=== PATIENT | female | born 1980 ===

== ENCOUNTER 2016-07-25 12:54 | Emergency (ER) | payer SELFPAY ==
[2016-07-25 13:39] VITALS: BMI 29.0
[2016-07-25] MEDS ORDERED: Lactated Ringer's 1,000 ML IV ONE (15:35)
--- NOTE | 2016-07-25 15:47 | US ---
Ultrasound biophysical profile Indication: Rule out abruption, 3rd trimester bleeding Technique: Grayscale, color flow, and M-mode sonographic images of the single live intrauterine were obtained. Comparison: Limited OB ultrasound performed 03/17/16 Findings: There is a single live intrauterine gestation. The fetus is in cephalic position. The placenta is anterior. There is no evidence of previa. There is a normal amount of amniotic fluid. The JULIET measures 15.8 cm. M-mode imaging demonstrates a heart rate to be 136.8 beats per min. movements 2/2 breathing 2/2 tone 2/2 Amniotic fluid 2/2 Total score impression: 10/25 Impression: Biophysical profile of 8 out of 8. Single live intrauterine in cephalic position with a heart rate of 136.8 beats per min.
[2016-07-25] MEDS: Lactated Ringer's 1,000 ML IV SCH (16:30)
[2016-07-25 18:20] LABS: HEMATOCRIT 30.9 % (34.0-47.0); MEAN CELL VOLUME 78.3 fl (81.0-99.0); MEAN CORPUSCULAR HEMOGLOBIN 24.7 pg (27.0-31.0); MEAN CORPUSCULAR HGB CONC 31.6 g/dL (33.0-37.0); RED CELL DISTRIBUTION WIDTH 25.8 % (11.5-14.5); WHITE BLOOD COUNT 10.9 K/uL (4.8-10.8)
[2016-07-25 22:51] LABS: ALB/GLOB RATIO 1.2 (1.0-2.1); ALKALINE PHOSPHATASE 166 U/L (38-126); ALT/SGPT 32 U/L (9-52); AST/SGOT 32 U/L (14-36); BILIRUBIN,TOTAL 0.2 mg/dl (0.2-1.3); BLOOD UREA NITROGEN 6 mg/dl (7-17); CALCIUM 8.9 mg/dL (8.4-10.2); CARBON DIOXIDE 22 mmol/L (22-30); CHLORIDE 105 mmol/L (98-107); GFR AFRICAN-AMERICAN > 60; GLUCOSE,RANDOM 58 mg/dL (65-105); POTASSIUM 3.7 MMOL/L (3.6-5.0); SODIUM 138 mmol/l (132-148); TOTAL PROTEIN 6.6 G/DL (6.3-8.2)
[2016-07-26 00:49] LABS: RBC URINE < 1 /hpf (0-3); URINE BACTERIA RARE (<OCC); URINE BILIRUBIN NEGATIVE (NEGATIVE); URINE BLOOD SMALL (NEGATIVE); URINE COLOR YELLOW (YELLOW); URINE GLUCOSE (UA) NEG (Normal); URINE KETONE NEGATIVE (NEGATIVE); URINE LEUKOCYTE ESTERASE NEG Leu/uL (Negative); URINE PROTEIN NEGATIVE (NEGATIVE); URINE UROBILINOGEN 0.2-1.0 mg/dL (0.2-1.0); WBC URINE < 1 /hpf (0-5)
[2016-07-26] MEDS: Lactated Ringer's 1,000 ML IV SCH (01:50)
--- NOTE | 2016-07-26 08:03 | OBHP ---
Datetime: 07/25/2016 13:45 IP Admit Plan: Observation/Evaluation Admit Comment, IP Provider: 36yi edc 08/16 by 18wk us presents w/ c/o bloody fluid @ 12:00. S he denies ctxs, coitus, in past 2days, abd pain, or decreased fm. 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 incompete ab treated with d_c and blood transfusion; complete ab pshx: d_c medic: pnv; feso4 tid nkda shx: denies tobacco, cocaine, etoh I: 3rd Trim Bleeding AMA Anemia h/o through out preg p: fms ob us p: US for den, bpp, efw and assessment of plac. Pelvic Type - PN: Adequate Extremities - PN: Normal Abdomen - PN: Normal Lungs - PN: Normal Heart - PN: Normal Neurologic - PN: Normal HEENT - PN: Normal General - PN: Normal FHR - Baseline A Provider: 130 Contraction Comments Provider: no Comments, ACOG Physical Exam: B+; rubella indeterm; gbs neg SSE: + pooled blood in vault, dark red. no active bleeding per cer os ob us: bpp 8/8; ;no previa or evidence of abruption den 15.8 EGA AdmitDate IP: 36.6 Vital Signs Provider: Within Normal Limits IP Chief Complaint: Vaginal bleeding NICHD Variability Prov Fetus A: Moderate 6-25bpm NICHD Accel Fetus A IP Provider: 15X15 FHR Category Provider Fetus A: Category I NICHD Decel Fetus A IP Provider: None Dilatation, Provider: 0 Effacement, Provider: 0 Station, Provider: -4 Genitourinary Exam: Normal
--- NOTE | 2016-07-26 08:12 | OBPN ---
Datetime: 07/26/2016 08:05 Pool Provider: Negative Contraction Comments Provider: no FHR - Baseline A Provider: 130 IP Progress Note Comment: s: pt states bleeding decreased. states scant brown blood. deneis cramps, ctxs, srom, or leakage. +good fm. o: SSE: no active bleeding per cerv os; + brown blood smeared through vaginal vault I: Third Trim Bleeding- no active bleeding Categ 1 w/ no ctxs P: d/c home. f/u in 1-2days in clinic request f/u us with dr. orourke [facility] if bleeding restarts. pelvic rest kick counts. Fe supplem reinforced. Vital Signs Provider: Within Normal Limits NICHD Accel Fetus A IP Provider: 15X15 FHR Category Provider Fetus A: Category I NICHD Variability Prov Fetus A: Minimal - Undetectable to <5bpm Dilatation, Provider: 0 Effacement, Provider: 0 Station, Provider: -4 NICHD Decel Fetus A IP Provider: None
--- NOTE | 2016-07-26 09:36 | US ---
PROCEDURE: Obstetrical ultrasound examination HISTORY: r/o abruption COMPARISON: Not available TECHNIQUE: Transabdominal FINDINGS: The examination demonstrates a single live intrauterine gestation. Fetus in cephalic presentation. . heart rate 149 beats per minute. Normal anterior placenta. No evidence of placenta previa. No evidence of placental abruption.Cervical length none indicated. Normal amniotic fluid volume. JULIET 16.2 cm. biometry indicates average ultrasound age of 36 weeks 4 days. Estimated weight 3007 g. JULIAN by ultrasound is 08/18/2016. Neither right nor left ovary visualized. No adnexal masses are identified. IMPRESSION: Single live intrauterine gestation of approximately 36 weeks 4 days gestational age. Cephalic presentation. No evidence of placenta previa. Normal amniotic fluid volume. No evidence of placental abruption. Preliminary interpretation of this examination was reported by [facility] at 8:20 p.m. on 07/25/2016.. There is concurrence of this report with the preliminary interpretation.
== END 2016-07-25 23:00 | disposition home or self-care (01) ==
LOC: H.EROB2 12:54
DX: O47.03 False labor before 37 completed weeks of gestation, third trimester (principal); Z3A.36 36 weeks gestation of pregnancy; O99.03 Anemia complicating the puerperium; O09.523 Supervision of elderly multigravida, third trimester

== ENCOUNTER 2016-08-10 08:56 | Inpatient (IN) | payer MEDICAID, SELFPAY ==
[2016-08-10 11:03] VITALS: BMI 30.2
[2016-08-10] MEDS ORDERED: Oxytocin 30 units/LR 500ML 30 U/500 ML BAG IV SCH (11:15)
[2016-08-10] MEDS: Lactated Ringer's 1,000 ML IV SCH (11:49)
--- NOTE | 2016-08-10 11:49 | OBADHP ---
Datetime: 08/10/2016 09:54 Admit Comment, IP Provider: 36 yo , ect preg x 1 at 39.1 weeks GA by US with JULIAN: 08/16 pres ents to SPEEDY c/o LOF small amount, noticed in the morning associated with minimal vaginal spotting. Patient denies Ctx, headache, blurry vision, dysuria and reports + FM. care CFH. as per didi ent Last visit 08/08 patient checked cervix closed. LAst Growth Us 08/01 BPP: 10/, EFW: 6lbs 13 Oz. placenta anterior. Patient reports last delivery was home and it was a fast delivery (3 hours) POBhx: x 6. SAb x 1. Ect preg x 1. Severe Anemia during this . Hgb electroph possib le alpha thalasemia, but alpha thalasemia DNA no mutation detected. Hx/o precipitous delivery outside hospital PMhx: none Pshx: 2002 d_c Allergies: NKDA Meds: Iron 1 tab TID, PNV PSurgHx: none PShx: No ETOh, rect drugs, Cig GBS: neg ABO-Rh: B+ Antibody: neg RPR: neg HIV: neg HBsAg: neg Rubella: Equivocal GC/C: neg PPD: posit/ CXR ? needed TDap: placed Assessment/Plan: 36 yo , ect preg x 1 at 39.1 weeks GA. No SROM. Plan: - Observation -continous monitoring -Check in 1 hour Megha Ahmadi PGY1 Case discussed with Dr Price Attending addendum: Patient seen and examined with resident, chart reviewed, agree with resident Dr. Ahmadi's note findi ngs and plan. 36 y/o at 39w1d based on 18wk u/s EDC 08/16/16. Pt reports increased ctx since this morning and passsing mucus plug, some fluid and blood streaked. +fm A/P: grand multiparity at term with hx of precipitous deliveries, admit to L_D, active management of labor, hemorrhage precautions -Fetus: category 1 tracing -AMA: low risk testing, declined amnio -anemia: H/H 9.7/30.9, check CBC now, T_S -+ppd this , check cxr at delivery -rubella equivocal, give vaccine -GBS neg, GCT 95, prior delivery of 9#2 and 9#3 babies w/o complications -anticipate Pat Price MD Pelvic Type - PN: Adequate Extremities - PN: Normal Abdomen - PN: Normal Back - PN: Normal Breast - PN: Normal Lungs - PN: Normal Heart - PN: Normal Thyroid - PN: Normal Neurologic - PN: Normal HEENT - PN: Normal General - PN: Normal FHR - Baseline A Provider: 140 Membranes, Provider: Intact Contraction Comments Provider: irregular Comments, ACOG Physical Exam: Us Bedside: Vertex SSE: Vaginal discharge related with mucus plug. membranes not bulging. nitrazine neg Pool Provider: Negative Nitrazine Provider: Negative Vital Signs Provider: Reviewed; Within Normal Limits IP Chief Complaint: Suspected ruptured membranes NICHD Variability Prov Fetus A: Moderate 6-25bpm NICHD Accel Fetus A IP Provider: 15X15 FHR Category Provider Fetus A: Category I NICHD Decel Fetus A IP Provider: None Dilatation, Provider: 2-3 cm Effacement, Provider: 50 Station, Provider: -3 Genitourinary Exam: Normal DTRs - PN: Normal EGA AdmitDate IP: 39.1 IP Adm Impression: Term, intrauterine IP Admit Plan: Admit to unit; Observation/Evaluation
[2016-08-10] MEDS ORDERED: Oxytocin 30 units/LR 500ML 30 U/500 ML BAG IV ONE (11:53)
[2016-08-10 12:21] LABS: HEMATOCRIT 35.4 % (34.0-47.0); MEAN CELL VOLUME 80.5 fl (81.0-99.0); MEAN CORPUSCULAR HEMOGLOBIN 25.9 pg (27.0-31.0); MEAN CORPUSCULAR HGB CONC 32.2 g/dL (33.0-37.0); RED CELL DISTRIBUTION WIDTH 26.9 % (11.5-14.5); WHITE BLOOD COUNT 10.1 K/uL (4.8-10.8)
[2016-08-10] MEDS ORDERED: Lidocaine 1% Inj (20ml) ONE (13:04)
[2016-08-10] MEDS ORDERED: Succinylcholine 200 mg/10 ml Inj IV ONE (14:21)
[2016-08-10] MEDS ORDERED: Propofol 10 mg/ml Inj (20 ML) ONE (14:21)
[2016-08-10] MEDS ORDERED: Rocuronium 10 mg/ml (5 ml) ONE (14:26)
[2016-08-10] MEDS ORDERED: HYDROmorphone 0.5 mg/0.5 ml ISec IVP PRN (15:36)
--- NOTE | 2016-08-10 15:36 | RAD ---
HISTORY: Staff surgery. COMPARISON: No prior study available comparison FINDINGS: BOWEL: Nonobstructive/nonspecific bowel gas pattern. BONES: Osseous structures intact. OTHER FINDINGS: No obvious radiopaque foreign body seen within the intraperitoneal compartment however note made of radiopaque ribbonlike structure and rounded metallic ring-like structure overlying the right hip/inguinal region. Clinical correlation with physical exam recommended as the structures appear to be outside the intraperitoneal compartment likely overlying the patient however clinical correlation with physical exam recommended. . IMPRESSION: No radiopaque foreign body seen within the intraperitoneal compartment. There is however a radiopaque ribbonlike structure and metallic ring-like structure overlying the right hip/right inguinal region of which appears to be outside of the intraperitoneal compartment likely overlying the patient however clinical correlation with physical exam is recommended.
[2016-08-10] MEDS ORDERED: ceFAZolin 1 GM in Sodium Chloride 0.9% 100 ML IVPB ONE (15:44)
[2016-08-10] MEDS ORDERED: Oxycodone/Acetaminophen 5/325 mg Tab PO PRN ×3 (15:45→20:22)
[2016-08-10] MEDS ORDERED: Simethicone 80 mg Chewtab PO SCH (16:00)
--- NOTE | 2016-08-10 17:20 | OBPN ---
Datetime: 08/10/2016 14:22 IP Progress Impression: Normal progression of labor; Reassuring heart rate IP Procedures: Artificial ROM IP Progress Plan: Deliver- Section Contraction Comments Provider: q3-4 min FHR - Baseline A Provider: 130 IP Progress Note Comment: The patient is doing well pain well controlled reports contractions of mod erate intensity patient reports occasional leakage of fluid and good movement SVE [id number] bulging membranes Assessment and plan intrauterine active labor AROM Clear fluid Upon rupturing the membranes the cord was noted to have prolapsed. Stat section was hamm d the patient was placed in Trendelenburg Dr Price hand was inserted into the vagina gentle upward p ressure was applied to prevent cord compression. The patient was informed of the emergent nature of t he situation consent was obtained we discussed her risks benefits and alternatives to the procedure a nd patient agreed with the plan of care. The patient was taken to the Operating room in an emergent f ashion and the infant was delivered. see op report NICHD Accel Fetus A IP Provider: 15X15 FHR Category Provider Fetus A: Category I NICHD Variability Prov Fetus A: Moderate 6-25bpm Dilatation, Provider: 6-7 Effacement, Provider: 80 Station, Provider: -1 NICHD Decel Fetus A IP Provider: None Datetime: 08/10/2016 13:30 Membranes, Provider: Intact Vital Signs Provider: Reviewed; Within Normal Limits Datetime: 08/10/2016 09:54 Pool Provider: Negative Nitrazine Provider: Negative
--- NOTE | 2016-08-10 17:22 | OBPN ---
Datetime: 08/10/2016 14:22 IP Progress Note Comment: The patient is doing well pain well controlled reports contractions of mod erate intensity patient reports occasional leakage of fluid and good movement SVE 6-780-1 bulging membranes Assessment and plan intrauterine active labor AROM Clear fluid Upon rupturing the membranes the cord was noted to have prolapsed. Stat section was hamm d the patient was placed in Trendelenburg Dr Price hand was inserted into the vagina gentle upward p ressure was applied to prevent cord compression. The patient was informed of the emergent nature of t he situation, The patient was taken to the Operating room in an emergent fashion consent was obtaine d prior to general anesthesia we discussed the r/b/a to section and the patient agreed. The infant was delivered. see op report
--- NOTE | 2016-08-10 21:39 | OP ---
PROCEDURE DATE: 08/10/2016 PREOPERATIVE DIAGNOSES: Intrauterine at 39 weeks, active labor, cord prolapse. POSTOPERATIVE DIAGNOSES: Intrauterine at 39 weeks, active labor, cord prolapse. OPERATION PERFORMED: Stat primary section by Pfannenstiel skin incision. SURGEON: Renu Yost MD COAL CHUTE WORKER: Dr. Ahmadi. ESTIMATED BLOOD LOSS: Approximately 1000 mL. The patient put out approximately 50 mL of clear urine. The patient received approximately 1200 mL of D5LR intraoperatively. OPERATIVE FINDINGS: Baby girl, vertex presentation, Apgars 0 and 4; normal uterus, tubes, and ovaries were identified. COMMENTS: The patient was a 36-year-old female grand multipara who presented to labor and delivery approximately 2-3 cm dilated complaining of uterine contractions at 39 weeks. The patient had given history of previous home delivery secondary to precipitous labor. The decision was made to keep the patient for delivery. The patient progressed to 5-6 cm, bulging membranes were noted, upon rupturing the membranes, cord prolapse was identified immediately. The patient was placed in steep Trendelenburg. Physician, Dr. Price, was available to assist. She kept hand in the vagina to avoid any additional cord compression and the patient was taken to the operating room and a stat procedure was performed. X-ray was performed after the procedure and no instruments were identified postoperatively. PROCEDURE IN DETAIL: After informed consent was obtained, the patient was taken to the operating room where she was prepped and draped in a normal sterile fashion. A Pfannenstiel skin incision was then made with the scalpel and carried down to the underlying layer of fascia. The fascia was nicked in the midline and the fascial incision was then extended laterally with curved Lopez scissors. Superior aspect of the fascial incision was then grasped with Arlin clamps. The rectus muscles were dissected off bluntly and with sharp curved Mayos. Attention was then turned to the inferior aspect of the fascial incision which in similar fashion was dissected off bluntly and with the curved Lopez scissors. Rectus muscles were then in the midline. The peritoneum was entered bluntly. The lower blade was inserted into the abdomen and the vesicouterine peritoneum was identified and entered sharply with the Metzenbaum scissors. The bladder flap was created digitally. Lower transverse incision was made and the infant was then delivered atraumatically. The was handed off to waiting pediatricians and audiology technician. The placenta was then removed manually. The uterus was exteriorized and cleared of all clots and debris. The uterine incision was repaired with 0 Vicryl in a running lock fashion, second layer of the same suture was used to obtain excellent hemostasis. The abdomen was then copiously irrigated. Irrigant was removed with a suction device. The uterus was returned to the abdomen. Hemostasis was noted. The peritoneum was then closed with 2-0 Vicryl in a running fashion. The muscles reapproximated with 0 Vicryl in an interrupted fashion. The fascia was closed with 0 Vicryl in a running fashion and the skin was closed with 3-0 on a Zen needle Due to the urgent nature of the situation we were unable to get a preoperative instrument count, an xray was obtained postoperatively and the film was reviewed by radiology. Dr. Ahmadi was the veterinarian assistant in the procedure. He was helpful in creating exposure, obtaining hemostasis, retraction and delivery of the . The procedure would not have been possible without assistance. Dr. Price, was also instrumental in the care of the patient. She maintained her hand in the vagina until the baby was safely delivered to avoid any cord compression. Renu Yost MD cc: [id number] TT: 08/10/2016 21:38:12 kika ENCINAS
[2016-08-10] MEDS: Simethicone 80 mg Chewtab PO SCH (21:47)
[2016-08-11] MEDS: Lactated Ringer's 1,000 ML IV SCH ×3 (03:20→22:20)
[2016-08-11 07:12] LABS: HEMATOCRIT 19.3 % (34.0-47.0); MEAN CELL VOLUME 81.9 fl (81.0-99.0); MEAN CORPUSCULAR HEMOGLOBIN 26.6 pg (27.0-31.0); MEAN CORPUSCULAR HGB CONC 32.5 g/dL (33.0-37.0); RED CELL DISTRIBUTION WIDTH 26.8 % (11.5-14.5); WHITE BLOOD COUNT 9.4 K/uL (4.8-10.8)
[2016-08-11] MEDS: Simethicone 80 mg Chewtab PO SCH ×3 (09:00→21:47)
--- NOTE | 2016-08-11 10:59 | RAD ---
HISTORY: + ppd COMPARISON: No prior. FINDINGS: LUNGS: No active pulmonary disease. PLEURA: No significant pleural effusion identified, no pneumothorax apparent. CARDIOVASCULAR: Normal. OSSEOUS STRUCTURES: No significant abnormalities. VISUALIZED UPPER ABDOMEN: Normal. OTHER FINDINGS: None. IMPRESSION: No active disease.
[2016-08-11] MEDS: Oxycodone/Acetaminophen 5/325 mg Tab PO PRN ×2 (14:26→20:09)
[2016-08-12] MEDS: Simethicone 80 mg Chewtab PO SCH ×3 (04:29→18:23)
[2016-08-12] MEDS: Lactated Ringer's 1,000 ML IV SCH (05:44)
[2016-08-12 06:55] LABS: BASO % 0.4 % (0.0-2.0); EOS # 0.9 K/uL (0.0-0.7); EOS % 9.4 % (0.0-4.0); LYMPH # 2.4 K/uL (1.0-4.3); LYMPH % 24.3 % (20.0-40.0); MEAN CELL VOLUME 84.2 fl (81.0-99.0); MEAN CORPUSCULAR HEMOGLOBIN 27.9 pg (27.0-31.0); MEAN CORPUSCULAR HGB CONC 33.1 g/dL (33.0-37.0); MEAN PLATELET VOLUME 8.8 fl (7.2-11.7); MONO # 0.3 K/uL (0.0-0.8); MONO % 3.5 % (0.0-10.0); NEUT # 6.1 K/uL (1.8-7.0); NEUT % 62.4 % (50.0-75.0); RED CELL DISTRIBUTION WIDTH 23.8 % (11.5-14.5); WHITE BLOOD COUNT 9.7 K/uL (4.8-10.8)
--- NOTE | 2016-08-12 07:30 | OBPPN ---
Datetime: 08/12/2016 06:19 PP Pain Prov: Within normal limits PP Nausea Prov: Denies PP Flatus Prov: No PP BM Prov: No PP Flatus Prov comment: + BS PP Heart Prov: Normal PP Lungs Prov: Normal PP Abdomen/Uterus Prov: Normal PP Extremities Prov: Normal PP C/S Incision Prov: Normal PP Progress Prov: Not Applicable PP Comments Phys Exam Prov: Abd: Soft, tender Bowl sounds + Incision : C/D/I no erythema or discharge noted PP Impression Prov: Normal progression PP Plan Prov: Continue present management PP Progress Note Prov: 36 YO seen and examined at bedside. Patient had uneventful overnight and has been feeling well during the day. Patient reports mild moderate pain controlled w/ oral sienna n medication, SKIP LOAD DRIVER pump was d/c overnight. Tolerating PO intake. Lochia is less than menses in volum e. Voiding freely w/ no blood noted w/ hernandez. Hernandez will be discontinued today. Reports passing gas but has not had a bowl movement. Pain controlled with medication. Denies fevers, chills, n/v/d, CP /SOB, lightheadedness and calf pain. Called overnight resident at [facility] to checkup on her child, mikal campa is doing well breathing on room air. Still has decreased PO intake, expected d/c for baby is on Mo nday. Assessment:36 YO s/p emergency C section due to cord prolapse on 08/10/16 @ 14:34 maciel ating pain w/ medication, tolerating PO intake, adequate urine output, doing well on POD#2. - CXR: Negative - Hb: 6.3. 2 Unit transfused Plan: - Mild pain PRN: Ibuprofen 600 mg 1 tab Q6h PO - Mod pain PRN: Percocet 5/325 mg 1 tab Q6 PO - CXR ordered - MMR on discharge - F/U w/ CBC s/p 2 units transfusion - d/c Hernandez today Gennaro Fenton M.D. OB Hospitalist Addendum: Pt seen and examined by me. Agree w/ above. POD 2 s/p Primary stat c/s, doing well, s/p 2 units PRBCs, breast pumping. Incision: intact w/ steri strips. (ES) IP PP Procedures: None Vital Signs Provider PP: Reviewed; Within Normal Limits Datetime: 08/11/2016 05:43 PP Lochia Prov: Normal PP Impression Other Prov: Pt encouraged to ask for pain med and use the SKIP LOAD DRIVER pump when need
[2016-08-12] MEDS: Oxycodone/Acetaminophen 5/325 mg Tab PO PRN (09:38)
[2016-08-13] MEDS: Simethicone 80 mg Chewtab PO SCH ×3 (00:21→14:34)
[2016-08-13] MEDS ORDERED: Measles, Mumps, and Rubella 0.5 ML VIAL SC ONE (08:00)
--- NOTE | 2016-08-13 17:24 | OBHP ---
Datetime: 08/10/2016 14:22 FHR - Baseline A Provider: 130 Contraction Comments Provider: q3-4 min NICHD Variability Prov Fetus A: Moderate 6-25bpm NICHD Accel Fetus A IP Provider: 15X15 FHR Category Provider Fetus A: Category I NICHD Decel Fetus A IP Provider: None Dilatation, Provider: 6-7 Effacement, Provider: 80 Station, Provider: -1 Datetime: 08/10/2016 13:30 IP Adm Impression: Term, intrauterine Membranes, Provider: Intact EGA AdmitDate IP: 39.1 Vital Signs Provider: Reviewed; Within Normal Limits IP Chief Complaint: Uterine contractions; Suspected ruptured membranes Datetime: 08/10/2016 09:54 IP Admit Plan: Admit to unit; Observation/Evaluation (Annotations: Data stored by CPN on behalf of user) Pelvic Type - PN: Adequate Extremities - PN: Normal Abdomen - PN: Normal Back - PN: Normal Breast - PN: Normal Lungs - PN: Normal Heart - PN: Normal Thyroid - PN: Normal Neurologic - PN: Normal HEENT - PN: Normal General - PN: Normal Comments, ACOG Physical Exam: Us Bedside: Vertex SSE: Vaginal discharge related with mucus plug. membranes not bulging. nitrazine neg Pool Provider: Negative Nitrazine Provider: Negative Genitourinary Exam: Normal DTRs - PN: Normal Datetime: 07/25/2016 15:02 Admit Comment, IP Provider: 36yi edc 08/16 by 18wk us presents w/ c/o bloody fluid @ 12:00. S he denies ctxs, coitus, in past 2days, abd pain, or decreased fm. 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 incompete ab treated with d_c and blood transfusion; complete ab pshx: d_c medic: pnv; feso4 tid nkda shx: denies tobacco, cocaine, etoh I: 3rd Trim Bleeding- no evidence of abruption AMA Anemia h/o through out preg p: admit for 23hr admission.
--- NOTE | 2016-08-13 17:27 | OBDCSUM ---
Datetime: 08/13/2016 06:43 Discharged to, Provider: Home Follow up at, Provider: [facility] Disch Instr Activity: Normal activity Disch Instr Diet: Regular Discharge Instructions, Provider: Routine instructions given Discharge Diagnosis, Provider: Term Delivered Discharge Time: 08/13/2016 08:00 Follow up in weeks, Provider: 1 week for wound check Disch Referrals: None Disch Activity Restrictions: No exercising; No lifting; No sexual activity; Nothing in vagina - Inte rcourse, tampons, douche Discharge Comment, Provider: 36 YO s/p emergency C section due to cord prolapse on 7 @ 14:34 Delivered baby girl on 08/10/16 @ 14:34 AM , : 0,4, which was transferred to [facility]. Child is doing well and has been extubated and breathing on room air. Expected to be d/c on monday. Patient doing well, stable for discharge. Prescription given for pain. Encourage - PNV 1 tab PO once daily - Ibuprofen 600 mg 1 tab PO Q6 PRN mild pain - Percocet 5/325mg Q6 PRN moderate pain - Ferrous Sulfate 325 mg BID Ambulate w/ caution, nothing in vagina, no heavy lifting, if excessive bleeding or fever without relief from Tylenol go to ED - Advised to F/U with in 1 week for wound check and 2-3 days for infant with tooling manager or PCP. Gennaro Fenton M.D. Transfer Station Attendant PGY1 Contraception after Delivery: Undecided Datetime: 07/26/2016 08:39 Discharge Instructions, Provider: Routine instructions given
--- NOTE | 2016-08-13 17:27 | OBPPN ---
Datetime: 08/13/2016 06:40 PP Pain Prov: Within normal limits PP Nausea Prov: Denies PP Flatus Prov: Yes PP BM Prov: No PP Heart Prov: Normal PP Lungs Prov: Normal PP Abdomen/Uterus Prov: Normal PP Lochia Prov: Normal PP CVA Tenderness Prov: Not Done PP Extremities Prov: Normal PP C/S Incision Prov: Normal PP Progress Prov: Not Applicable PP Comments Phys Exam Prov: Fundus firm below umbilicus Incision site: C/D/I not erythema, swelling or pus noted PP Impression Prov: Normal progression PP Plan Prov: Continue present management PP Progress Note Prov: 36 YO seen and examined at bedside. Patient had uneventful overnight and has been feeling well during the day. Patient reports mild moderate pain controlled w/ oral sienna n medication. Tolerating PO intake. Lochia is less than menses in volume. Voiding freely. OOB ambu lating with no problems. Reports passing gas but has not had a bowl movement. Pain controlled with medication. Denies fevers, chills, n/v/d, CP/SOB, lightheadedness and calf pain. Assessment:36 YO s/p emergency C section due to cord prolapse on 08/10/16 @ 14:34 maciel ating pain w/ medication, tolerating PO intake, adequate urine output, doing well on POD#3 - CXR: Negative - HB s/p 2 U of trasfusion: 8.09/12 Plan: - Stable for discharge today - Mild pain PRN: Ibuprofen 600 mg 1 tab Q6h PO - Mod pain PRN: Percocet 5/325 mg 1 tab Q6 PO - Ferrous Sulfate 325 mg BID - MMR on discharge Gennaro Fenton M.D. OB ADDENDUM: pt seen _ exmined by me. agree with above assessment and plan. IP PP Procedures: None Vital Signs Provider PP: Reviewed; Within Normal Limits
== END 2016-08-13 15:00 | disposition home or self-care (01) | DRG 775 ==
LOC: H.EROB2 08:56 → H.EROB 09:00 → H.L&D 11:03 → H.EROB2 11:10 → H.OB/GYN 20:02
PROVIDERS: ADMIT Obstetrics & Gynecology Gynecology; ATTEND Obstetrics & Gynecology Gynecology
PROC: 10E0XZZ Delivery of Products of Conception, External Approach (ICD-10-PCS; principal; 2016-08-10)
PROC: 4A1HXCZ Monitoring of Products of Conception, Cardiac Rate, External Approach (ICD-10-PCS; 2016-08-10)
DX: O69.0XX0 Labor and delivery complicated by prolapse of cord, not applicable or unspecified (principal); D64.9 Anemia, unspecified; Z37.0 Single live birth; O99.02 Anemia complicating childbirth; Z3A.39 39 weeks gestation of pregnancy; O09.523 Supervision of elderly multigravida, third trimester

== ENCOUNTER 2017-02-19 22:53 | Emergency (ER) | payer MEDICAID, SELFPAY ==
[2017-02-19 22:53] VITALS: BMI 30.2
[2017-02-19 23:01] VITALS: BP 116/76; PULSE 71; RESP 16; TEMP 98.9; O2SAT 100
[2017-02-19] MEDS ORDERED: Lactated Ringer's 1,000 ML IV STA (23:48)
[2017-02-20 00:06] LABS: BASO # 0.1 K/uL (0.0-0.2); BASO % 0.8 % (0.0-2.0); EOS % 10.1 % (0.0-4.0); HEMATOCRIT 31.3 % (34.0-47.0); LYMPH % 28.5 % (20.0-40.0); MEAN CELL VOLUME 86.4 fl (81.0-99.0); MEAN CORPUSCULAR HEMOGLOBIN 29.7 pg (27.0-31.0); MEAN CORPUSCULAR HGB CONC 34.4 g/dL (33.0-37.0); MEAN PLATELET VOLUME 8.8 fl (7.2-11.7); MONO # 0.5 K/uL (0.0-0.8); MONO % 4.8 % (0.0-10.0); NEUT # 5.8 K/uL (1.8-7.0); NEUT % 55.8 % (50.0-75.0); NRBC % 0.1 % (0.0-0.0); RED CELL DISTRIBUTION WIDTH 12.9 % (11.5-14.5); WHITE BLOOD COUNT 10.4 K/uL (4.8-10.8)
--- NOTE | 2017-02-20 00:06 | ED PDOC ---
HPI: Abdomen Time Seen by Provider: 02/19/17 23:29 Chief Complaint (Nursing): Abdominal Pain Chief Complaint (Provider): abdominal pain History Per: Patient History/Exam Limitations: no limitations Onset/Duration Of Symptoms: Days (2 weeks), Gradual, Persistent Associated Symptoms: Chills, Nausea, Vomiting, Loss Of Appetite, Urinary Symptoms (frequency) Exacerbating Factors: None Alleviating Factors: None Additional Complaint(s): Similar to previous episodes Has h/o gallstones, gastritis. LMP 10-28 Episodes of vomiting yesterday PMD [facility] [place] Past Medical History Reviewed: Historical Data, Nursing Documentation, Vital Signs Vital Signs: Last Vital Signs Temp 98.9 F 02/19/17 22:58 Pulse 71 02/19/17 22:58 Resp 16 02/19/17 22:58 BP 116/76 02/19/17 22:58 Pulse Ox 100 02/20/17 02:16 - Medical History PMH: Anemia, Gastritis, Gall Bladder Disease - Surgical History Surgical History: - Family History Family History: States: Diabetes, Hypertension - Social History Current smoker - smoking cessation education provided: No Alcohol: None - Immunization History Hx Tetanus Toxoid Vaccination: No Hx Influenza Vaccination: No Hx Pneumococcal Vaccination: No - Home Medications Home Medications: Ambulatory Orders Medication Instructions Recorded Vit No.126/Iron/Folic 1 tab PO DAILY 07/25/16 [Classic Tablet] Ferrous Sulfate [Feosol] 325 mg PO BID #60 tab 08/13/16 Ibuprofen [Motrin] 600 mg PO Q6 PRN #30 tab 08/13/16 Sennosides [Senokotxtra] 17.2 mg PO HS PRN #20 tablet 08/13/16 oxyCODONE/Acetaminophen [Percocet 1 ea PO Q6 PRN #20 tab 08/13/16 5/325 mg Tab] Dicyclomine [Bentyl] 20 mg PO Q12 PRN #20 tab 02/20/17 Doxylamine/Pyridoxine HCl (B6) 1 - 2 each PO HS #16 tablet. 02/20/17 [Gray De Luna 10-10 mg Tablet] - Allergies Allergies/Adverse Reactions: Allergies Allergy/AdvReac Type Severity Reaction Status Date / Time No Known Allergies Allergy Verified 02/19/17 22:58 Review of Systems ROS Statement: Except As Marked, All Systems Reviewed And Found Negative (and as per HPI) Constitutional: Positive for: Chills, Weakness, Malaise Gastrointestinal: Positive for: Nausea, Vomiting, Abdominal Pain. Negative for : Diarrhea, Constipation, Melena Genitourinary Female: Positive for: Frequency. Negative for: Dysuria, Hematuria , Vaginal Discharge, Vaginal Bleeding Physical Exam - Reviewed Nursing Documentation Reviewed: Yes Vital Signs Reviewed: Yes - Physical Exam Appears: Positive for: Non-toxic, In Acute Distress Head Exam: Positive for: ATRAUMATIC, NORMOCEPHALIC Skin: Positive for: Warm, Dry Eye Exam: Positive for: EOMI, PERRL ENT: Negative for: Pharyngeal Erythema, Tonsillar Exudate Neck: Positive for: Painless ROM, Supple Cardiovascular/Chest: Positive for: Regular Rate, Rhythm. Negative for: Tachycardia Respiratory: Positive for: Normal Breath Sounds. Negative for: Wheezing Gastrointestinal/Abdominal: Positive for: Soft, Tenderness. Negative for: Mass , Distended, Guarding, Rebound Back: Positive for: Normal Inspection. Negative for: Decreased ROM Extremity: Positive for: Normal ROM. Negative for: Deformity - Laboratory Results Result Diagrams: 02/20/17 00:02 02/20/17 00:02 - ECG O2 Sat by Pulse Oximetry: 100 Disposition - Clinical Impression Clinical Impression: Cholelithiasis, Subchorionic bleed - Disposition Disposition: Transfer of Care Disposition Time: 00:00 Condition: STABLE Prescriptions: Dicyclomine [Bentyl] 20 mg PO Q12 PRN #20 tab PRN Reason: abdominal pain Doxylamine/Pyridoxine HCl (B6) [Gray De Luna 10-10 mg Tablet] 1 - 2 each PO HS # 16 tablet. Print Language: MONGOLIAN Patient Signed Over To: Lalo Lopez Handoff Comments: P'ing ER workup reassessment and final ER disposition
[2017-02-20 00:18] LABS: POTASSIUM 3.1 MMOL/L (3.6-5.0)
--- NOTE | 2017-02-20 00:28 | ED PDOC ---
- Laboratory Results Result Diagrams: 02/20/17 00:02 02/20/17 00:02 - ECG O2 Sat by Pulse Oximetry: 100 Medical Decision Making Medical Decision Makin Patient signed out to me from Dr. Grant pending US and re-evaluation. 0149 US ABD FINDINGS There is a negative sonographic Melvin's sign per ct scan technologist. Gallstones are present. There is a sonographic Jose sign (echogenic wall, thin hypoechoic bile, echogenic gallstones with prominent shadowing) signifying a gallbladder completely filled with gallstones. Limited evaluation of the gallbladder wall itself due to the extensive shadowing. No definite pericholecystic fluid. The common bile duct measures 3 mm which is within normal limits. The liver is normal and measures 13 cm. The pancreas is normal. No right hydronephrosis. The right kidney measures 11 cm in length. IMPRESSION: Sonographic Jose sign indicative of gallbladder lumen filled with gallstones as discussed above. Limited evaluation of the gallbladder wall. No pericholecystic fluid or sonographic Melvin sign. If there continues to be high clinical concern for acute cholecystitis, HIDA scan may be helpful 0202 US OB FINDINGS The uterus measures 14 x 10 x 11 cm. The cervix measures 6 cm. There is an intrauterine gestational sac containing a yolk sac and pole. Measurements correspond to a gestational age of 11 weeks 0 days. A heart rate of 159 -164 beats per minute was obtained. There is a crescent-shaped hypoechoic structure adjacent to the gestational sac likely representing a subchorionic bleed (measurements not provided). Followup is recommended. There is a 1.7 cm right ovarian cyst. The maternal left ovary is normal. IMPRESSION: Single live IUP. Subchorionic bleed. Explained US results to patient at length. Patient reports improvement in symptoms and is stable for discharge home. Patient expressed to provider that she is considering termination of as well as tubal ligation. [facility] referred to [facility]. Dx: cholelithiasis and subchorionic bleed Scribe Attestation: Documented by Mary Giraldo acting as a scribe for Lalo Lopez MD. Scribe Attestation: All medical record entries made by the Scribe were at my direction and personally dictated by me. I have reviewed the chart and agree that the record accurately reflects my personal performance of the history, physical exam, medical decision making, and the department course for this patient. I have also personally directed, reviewed, and agree with the discharge instructions and disposition. Disposition - Clinical Impression Clinical Impression: Cholelithiasis, Subchorionic bleed - POA Present On Arrival: None - Disposition Disposition: Routine/Home Disposition Time: 02:15 Condition: STABLE Prescriptions: Dicyclomine [Bentyl] 20 mg PO Q12 PRN #20 tab PRN Reason: abdominal pain Doxylamine/Pyridoxine HCl (B6) [Gray De Luna 10-10 mg Tablet] 1 - 2 each PO HS # 16 tablet. Print Language: CAMEROONIAN
[2017-02-20 00:45] LABS: ALB/GLOB RATIO 1.3 (1.0-2.1); ALKALINE PHOSPHATASE 68 U/L (38-126); ALT/SGPT 59 U/L (9-52); AST/SGOT 32 U/L (14-36); BILIRUBIN,TOTAL 0.3 mg/dl (0.2-1.3); BLOOD UREA NITROGEN 13 mg/dl (7-17); CALCIUM 9.3 mg/dL (8.4-10.2); CARBON DIOXIDE 22 mmol/L (22-30); CHLORIDE 105 mmol/L (98-107); GFR AFRICAN-AMERICAN > 60; GLUCOSE,RANDOM 84 mg/dL (65-105); LIPASE 113 U/L (23-300); SODIUM 138 mmol/l (132-148); TOTAL PROTEIN 7.1 G/DL (6.3-8.2)
--- NOTE | 2017-02-20 01:49 | US ---
EXAM: US Abdomen Limited, Right Upper Quadrant EXAM DATE/TIME: 02/19/2017 11:48 PM CLINICAL HISTORY: 37 years old, female; Pain; Abdominal pain; Tenderness; Right upper quadrant (ruq); ; Patient HX: C section 6 months ago; Additional info: Abd pain TECHNIQUE: Real-time ultrasound of the right upper quadrant with image documentation. COMPARISON: No relevant prior studies available. FINDINGS: There is a negative sonographic Melvin's sign per polysomnography technologist. Gallstones are present. There is a sonographic Jose sign (echogenic wall, thin hypoechoic bile, echogenic gallstones with prominent shadowing) signifying a gallbladder completely filled with gallstones. Limited evaluation of the gallbladder wall itself due to the extensive shadowing. No definite pericholecystic fluid. The common bile duct measures 3 mm which is within normal limits. The liver is normal and measures 13 cm. The pancreas is normal. No right hydronephrosis. The right kidney measures 11 cm in length. IMPRESSION: Sonographic Jose sign indicative of gallbladder lumen filled with gallstones as discussed above. Limited evaluation of the gallbladder wall. No pericholecystic fluid or sonographic Melvin sign. If there continues to be high clinical concern for acute cholecystitis, HIDA scan may be helpful.
--- NOTE | 2017-02-20 02:03 | US ---
EXAM: US Uterus, Limited EXAM DATE/TIME: 02/19/2017 11:45 PM CLINICAL HISTORY: 37 years old, female; Pain; Other: Abd/pelvi pain; Gestational age or lmp: Lmp 12/27/2016; ; Prior surgery; Surgery date: 6+ months; Surgery type: C section; Additional info: Pelvic pain TECHNIQUE: Real-time ultrasound of the maternal uterus (limited) with image documentation. COMPARISON: US - OB TRANSVAGINAL 2015-01-15 00:34 FINDINGS: The uterus measures 14 x 10 x 11 cm. The cervix measures 6 cm. There is an intrauterine gestational sac containing a yolk sac and pole. Measurements correspond to a gestational age of 11 weeks 0 days. A heart rate of 159 -164 beats per minute was obtained. There is a crescent-shaped hypoechoic structure adjacent to the gestational sac likely representing a subchorionic bleed (measurements not provided). Followup is recommended. There is a 1.7 cm right ovarian cyst. The maternal left ovary is normal. Color flow and doppler vascular waveforms were demonstrated to both ovaries. IMPRESSION: Single live IUP. Subchorionic bleed.
== END 2017-02-20 02:32 | disposition home or self-care (01) ==
LOC: H.ER 22:53
DX: K80.20 Calculus of gallbladder without cholecystitis without obstruction (principal); O20.8 Other hemorrhage in early pregnancy; Z3A.11 11 weeks gestation of pregnancy; K29.70 Gastritis, unspecified, without bleeding; N83.201 Unspecified ovarian cyst, right side; O26.611 Liver and biliary tract disorders in pregnancy, first trimester
CPT/HCPCS: 76705; 76815; 80053; 81025; 83690; 84702; 85025; 85610; 85730; 86850; 86900; 96361; 96374; 99284; J7120